=== PATIENT | male | born 1945 | race Caucasian/White ===

== ENCOUNTER 2016-06-24 08:18 | Emergency (ER) | payer MEDICARE, OTHER ==
[~2016-06-24] VITALS: Ht 177.8 cm; Wt 87.9 kg
[~2016-06-24 08:18] MED LIST: ASPI-557 PO; ATOR80TA PO; CLOP75TA PO; FURO-154 PO; IBUP-1724 PO; METO25TA6 PO; NITR0.4T SL; POTA10CA37 PO; TAMS-1 PO
[2016-06-24 08:20] VITALS: Ht 177.8 cm; Wt 87.9 kg
--- OUTSIDE RECORDS SUMMARY | 2016-06-24 08:21 | XMS REPORT | Referral Summary ---
Author Author [facility] Organization [facility] Address Unknown Phone Unavailable Care Team Providers Care Email Marketing Specialist Name Role Phone German Calderon Primary Care Physician [phone] Encounter Date(s): 11/12/15 - 11/12/15 [facility], [address] [place] [address] Discharge Diagnosis: Status post CVA Discharge Diagnosis: General medical exam Discharge Disposition: 01-Home or Self Care Attending Physician: German Calderon DO Admitting Physician: German Calderon DO Vital Signs Most recent to 1 oldest [Reference Range]: Temperature Tympanic 36.5 degC [36.6-38.1 degC] *LOW* (11/12/15 12:52 PM) Peripheral Pulse 65 bpm Rate [60-100 bpm] (11/12/15 12:52 PM) Blood Pressure 122/57 mmHg [90-140/60-90 mmHg] (11/12/15 12:52 PM) Problem List Condition Effective Dates Status Health Status Informant Acute Active pain(Confirmed) Obesity(Confirmed) Active patient Tissue perfusion Active alteration(Confirmed )1 1Problem added automatically by system based on initiation of Tissue Perfusion Cerebral Plan of Care Allergies, Adverse Reactions, Alerts No Known Allergies Medications enalapril 20 mg oral tablet 20 mg 1 tabs, Oral, Daily, 0 Refill(s) Start Date: 11/07/15 Status: Ordered fenofibrate 145 mg oral tablet 145 mg 1 tabs, Oral, Daily, 0 Refill(s) Start Date: 11/07/15 Status: Ordered hydrochlorothiazide 12.5 mg oral tablet 12.5 mg 1 tabs, Oral, Daily, 0 Refill(s) Start Date: 11/07/15 Status: Ordered Lipitor 80 mg oral tablet 80 mg 1 tabs, Oral, Daily, 0 Refill(s) Start Date: 11/08/15 Status: Ordered Plavix 75 mg oral tablet 75 mg 1 tabs, Oral, Daily, 0 Refill(s) Start Date: 11/08/15 Status: Ordered Results No data available for this section Immunizations No data available for this section Procedures Procedure Date Related Diagnosis Body Site Stent Social History Social History Type Response Smoking Status Former smoker Assessment and Plan Extracted from: Title: Office Visit Note Author: German Calderon DO Date: 11/12/15 Assessment/Plan 1.Status post CVA 1. His motor function appears to be normal. 2. He appears to have some deficit with lag with his recall 3. I recommended outpatient no rehabilitation, patient declined 4. Continue with blood pressure and lipid management. 5. Follow-up in a month for reevaluation. Ordered: Office Visit Level 3 New 82249 2.General medical exam 1. We will follow this patient closely, he has moderate risk for recurrent cardiovascular disease/event 2. We'll continue checking his fasting lipids every 6 months Ordered: Office Visit Level 3 New 76972
--- OUTSIDE RECORDS SUMMARY | 2016-06-24 08:21 | XMS REPORT | Referral Summary ---
Author Author [facility] Organization [facility] Address Unknown Phone Unavailable Care Team Providers Care Radio Announcer Name Role Phone German Calderon Primary Care Physician [phone] Encounter Date(s): 11/18/15 - 11/18/15 [facility], [address] [place] [email or web address] Discharge Diagnosis: Sinus bradycardia Discharge Diagnosis: Hypotension Discharge Diagnosis: Status post CVA Discharge Diagnosis: First degree AV block Discharge Disposition: 01-Home or Self Care Attending Physician: German Calderon DO Admitting Physician: German Calderon DO Vital Signs Most recent to 1 oldest [Reference Range]: Temperature Tympanic 36.3 degC [36.6-38.1 degC] *LOW* (11/18/15 8:19 AM) Peripheral Pulse 73 bpm Rate [60-100 bpm] (11/18/15 8:19 AM) Blood Pressure 118/56 mmHg [90-140/60-90 mmHg] (11/18/15 8:19 AM) Problem List Condition Effective Dates Status Health [...] Extracted from: Title: Office Visit Note Author: Gemran Calderon DO Date: 11/18/15 Assessment/Plan 1.First degree AV block 1. EKG demonstrated first-degree AV block with sinus bradycardia and right bundle branch block. 2. Recommended following up with shift superintendent caustic cresylate for further evaluation and management from a cardiac standpoint 3. Low salt diet recommended 4. Avoid dehydration Ordered: Office Visit Level 5 Est 40349 2.Sinus bradycardia 1. Recommendations as above Ordered: Office Visit Level 5 Est 00241 Hypotension 1. Discontinue hydrochlorothiazide 2. Follow-up in a month for reevaluation, sooner if worsening presentation. Ordered: Office Visit Level 5 Est 29761 Status post CVA 1. Over an hour was spent [id number] with this patient and his today explaining his neurological findings and recent neurological insult. All questions were answered. 2. Nurse navigator was consulted to set him up for neuro rehabilitation. 3. Referral was made for neuro rehabilitation. 4. Follow-up in a month for reevaluation. 5. Accounts Supervisor consult recommended for his right hemianopsia. Ordered: Office Visit Level 5 Est 78649 Extracted from: Title: Order for Outpatient Rehab Author: Maggie Stafford RN Date: 11/17 Date: 11/18/15 Order: Outpatient neuro rehab to evaluate and treat Dx: Recent CVA Z78.9 NOTE: For more information please contact Kathleen Busby at [phone]. Ordering Provider: (Dr. German Calderon) [phone]. Thank you. [facility]. German Calderon [address] [place] [phone] Fx:
--- OUTSIDE RECORDS SUMMARY | 2016-06-24 08:22 | XMS REPORT | Referral Summary ---
Author Author [facility] Organization [facility] Address Unknown Phone Unavailable Care Team Providers Care Tombstone Erector Helper Name Role Phone German Calderon Primary Care Physician [phone] Encounter Date(s): 01/06/16 - 01/06/16 [facility], [address] [place] [address]- Discharge Diagnosis: Postural dizziness with near syncope Discharge Diagnosis: Symptomatic hypotension Discharge Diagnosis: CAD (coronary artery disease) Discharge Diagnosis: History of open heart surgery Discharge Diagnosis: HTN (hypertension) Discharge Diagnosis: History of ischemic cerebrovascular accident (CVA) with residual deficit Discharge Disposition: -Home or Self Care Attending Physician: German Calderon DO Admitting Physician: German Calderon DO Vital Signs Most recent to 1 oldest [Reference Range]: Temperature Tympanic 36.3 degC [36.6-38.1 degC] *LOW* (01/06/16 9:33 AM) Peripheral Pulse 59 bpm Rate [60-100 bpm] *LOW* (01/06/16 9:33 AM) Respiratory Rate 14 br/min [14-20 br/min] (01/06/16 9:33 AM) Blood Pressure 108/50 mmHg [90-140/60-90 mmHg] (01/06/16 9:33 AM) SpO2 98 % (01/06/16 9:33 AM) Problem List Condition Effective Dates Status Health Status Informant Acute Active pain(Confirmed) Obesity(Confirmed) Active patient Tissue perfusion Active alteration(Confirmed )1 1Problem added automatically by system based on initiation of Tissue Perfusion Cerebral Plan of Care Allergies, Adverse Reactions, Alerts No Known Allergies Medications amiodarone 200 mg oral tablet mg tabs, Oral, Daily, 0 Refill(s) Start Date: 01/06/16 Status: Ordered aspirin 81 mg oral tablet mg tabs, Oral, Daily, 0 Refill(s) Start Date: 01/06/16 Status: Ordered docusate 0 Refill(s) Start Date: 01/06/16 Status: Ordered enalapril 20 mg oral tablet 20 mg 1 tabs, Oral, Daily, 0 Refill(s) Start Date: 11/07/15 Status: Ordered fenofibrate 145 mg oral tablet 145 mg 1 tabs, Oral, Daily, 0 Refill(s) Start Date: 11/07/15 Status: Ordered furosemide 20 mg oral tablet mg tabs, Oral, Daily, 0 Refill(s) Start Date: 01/06/16 Status: Ordered Lipitor 80 mg oral tablet 80 mg 1 tabs, Oral, Daily, 0 Refill(s) Start Date: 11/08/15 Status: Ordered metoprolol tartrate 25 mg oral tablet mg tabs, Oral, BID, 0 Refill(s) Start Date: 01/06/16 Status: Ordered Plavix 75 mg oral tablet 75 mg 1 tabs, Oral, Daily, 0 Refill(s) Start Date: 11/08/15 Status: Ordered rivaroxaban 20 mg oral tablet 20 mg 1 tabs, Oral, qPM, # 30 tabs, 0 Refill(s) Start Date: 01/06/16 Status: Ordered senna 8.6 mg oral tablet mg tabs, Oral, Bedtime (once a day), 0 Refill(s) Start Date: 01/06/16 Status: Ordered tamsulosin 0.4 mg oral capsule mg caps, Oral, Daily, 0 Refill(s) Start Date: 01/06/16 Status: Ordered Results No data available for this section Immunizations No data available for this section Procedures Procedure Date Related Diagnosis Body Site Stent Social History Social History Type Response Smoking Status Former smoker Assessment and Plan Extracted from: Title: Office Visit Note Author: German Calderon DO Date: 01/06/16 Assessment/Plan 1.Postural dizziness with near syncope 1. His syncopal episode appears to be orthostatic hypotension. 2. IV was started and IV NS fluid started juany rate of 500 mL/ hour. 3. Hold off on Lasix. Ordered: Office Visit Level 5 Est 30827 2.Symptomatic hypotension 1. As above. 2. Swamper was consulted by phone, [facility]. Ordered: Office Visit Level 5 Est 16689 3.CAD (coronary artery disease) 1. Continue with recommendations as per cardiothoracic and marine equipment test engineer. 2. Continue with atorvastatin as previous. 3. Continue with cardiac rehabilitation. 4. Consider implementing healthy lifestyle changes. Ordered: Office Visit Level 5 Est 90096 4.History of open heart surgery as above. Ordered: Office Visit Level 5 Est 59944 5.HTN (hypertension) 1. He is having more symptomatic hypotension at this time. Ordered: Office Visit Level 5 Est 29413 6.History of ischemic cerebrovascular accident (CVA) with residual deficit 1. Continue with neuro rehabilitation as previous. 2. Additional recommendations as above. Over an hour was spent with this patient and his today
--- OUTSIDE RECORDS SUMMARY | 2016-06-24 08:22 | XMS REPORT | Continuity of Care Document ---
Author Author [facility] Organization [facility] Address Unknown Phone Unavailable Allergies Active Description Code Type Severity Reaction Onset Reported/Identified Relationship to Patient Clinical Status Yes No Known Allergies [id number] Unknown N/A 12/10/2015 Medications Medication Packaging Start Date Stop Date Route Dosage Sig MORPHINE 12/20/2015 12/23/2015 [id number] ONDANSETRON HCL 12/20/2015 12/24/2015 Q6HPRN DEXTROSE 50% IN WATER (D50W) 12/20/2015 12/24/2015 PRN ALUM-MAG HYDROXIDE-SIMETH 12/20/2015 12/24/2015 Q4HPRN INSULIN (REGULAR) 12/20/2015 12/24/2015 PRN IPRATROPIUM-ALBUTEROL 12/20/2015 12/24/2015 QIDRT DOCUSATE SODIUM 12/20/2015 12/24/2015 BID ASPIRIN 12/20/2015 12/24/2015 0700 ATORVASTATIN 12/20/2015 12/24/2015 HS MAGNESIUM HYDROXIDE 12/21/2015 12/24/2015 PRN POLYETHYLENE GLYCOL 3350 12/21/2015 12/24/2015 QD AMIODARONE 12/21/2015 12/24/2015 Q12H SENNOSIDES 12/21/2015 12/24/2015 QD HEPARIN, PORCINE (PF) 12/21/2015 12/24/2015 Q12H PANTOPRAZOLE 12/21/2015 12/24/2015 ACB ACETAMINOPHEN 12/21/2015 12/22/2015 Q6H HYDROCODONE-ACET 5-325MG 12/21/2015 12/23/2015 Q4H INSULIN LEVEMIR 12/21/2015 12/22/2015 PM INSULIN NOVOLOG 12/22/2015 12/22/2015 TIDWM ALPRAZolam 12/22/2015 12/24/2015 BIDPRN TAMSULOSIN 12/22/2015 12/24/2015 QD METOPROLOL TARTRATE 12/22/2015 12/22/2015 BID METOPROLOL TARTRATE 12/22/2015 12/24/2015 QID BISACODYL 12/23/2015 12/24/2015 PRN BISACODYL 12/23/2015 12/23/2015 ONCE POTASSIUM CHLORIDE 12/23/2015 12/23/2015 ONCE FUROSEMIDE 12/23/2015 12/23/2015 Q12H ACETAMINOPHEN 12/23/2015 12/24/2015 Q6HPRN FUROSEMIDE 12/23/2015 12/24/2015 BID4PM LORATADINE 12/23/2015 12/24/2015 QDPRN PNEUMOCOCCAL 23-VALPS VACCINE 12/24/2015 12/24/2015 DIS INFLUENZA VACCINE TS (PF) 12/24/2015 12/24/2015 DIS RIVAROXABAN 12/24/2015 12/24/2015 SUP Problems Date Dx Coded Attending Type Code Diagnosis Diagnosed By 02/08/2016 [facility] E66.9 OBESITY, UNSPECIFIED [facility] 02/08/2016 [facility] E78.5 HYPERLIPIDEMIA, UNSPECIFIED [facility] 02/08/2016 [facility] I10 ESSENTIAL (PRIMARY) HYPERTENSION [facility] 02/08/2016 [facility] I25.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 [facility] 02/08/2016 [facility] 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 [facility] 02/08/2016 [facility] I65.23 OCCLUSION AND STENOSIS OF BILATERAL CAROTID ARTERIES [facility] 02/08/2016 [facility] M54.9 DORSALGIA, UNSPECIFIED [facility] 02/08/2016 [facility] S Z68.29 BODY MASS INDEX (BMI) 29.0-29.9, ADULT [facility] 02/10/2016 [facility] P J90 PLEURAL EFFUSION, NOT ELSEWHERE CLASSIFIED [facility] 02/10/2016 [facility] S Z95.1 PRESENCE OF AORTOCORONARY BYPASS GRAFT [facility] 02/12/2016 [facility] P J90 PLEURAL EFFUSION, NOT ELSEWHERE CLASSIFIED [facility] 02/12/2016 [facility] S J98.11 ATELECTASIS [facility] 02/12/2016 [facility] S J90 PLEURAL EFFUSION, NOT ELSEWHERE CLASSIFIED [facility] 02/12/2016 [facility] S J98.11 ATELECTASIS [facility] 02/12/2016 [facility] P Z09 ENCOUNTER FOR FOLLOW-UP EXAMINATION AFTER COMPLETED TREATMENT FOR CONDITIONS OTHER THAN MALIGNANT NEOPLASM [facility] 02/19/2016 [facility] S I25.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 [facility] 02/19/2016 [facility] S I25.84 CORONARY 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0 X10(3) 4.5-11.0 RBC - RED CELL COUNT 3.54 X10(6) 4.60-6.20 PLATELET COUNT 190 X10(3) 150-450 HEMOGLOBIN 10.7 g/dl 13.5-18.0 HEMATOCRIT 31.4 % 40.0-54.0 MCV 88.7 fL 80.0-96.0 MCH 30 pg 27-31 MCHC 34.1 % 32.0-36.0 MAGNESIUM - 12/23/15 05:55 MAGNESIUM 2.6 mg/dl 1.8-2.4 BMP - BASIC METABOLIC PANEL - 12/23/15 05:55 GLUCOSE 90 mg/dl 74-106 BUN 34 mg/dl 7-18 CREATININE 1.04 mg/dl 0.70-1.30 eGFR >60 mL/min SODIUM (NA) 141 mEq/L 136-146 POTASSIUM, BLOOD 3.8 mEq/L 3.5-5.1 CHLORIDE 106 mEq/L 98-107 CO2 (BICARBONATE) 29 mEq/L 21-32 CALCIUM 8.9 mg/dl 8.5-10.1 GLUCOSE, ACCUCHEK - 12/23/15 13:45 GLUCOSE (ACCUCHEK) 117 mg/dl 74-105 GLUCOSE, ACCUCHEK - 12/23/15 20:56 GLUCOSE (ACCUCHEK) 129 mg/dl 74-105 CBC NO DIFF (HEMOGRAM) - 12/24/15 03:45 WBC - WHITE CELL COUNT 8.7 X10(3) 4.5-11.0 RBC - RED CELL COUNT 3.55 X10(6) 4.60-6.20 PLATELET COUNT 229 X10(3) 150-450 HEMOGLOBIN 10.7 g/dl 13.5-18.0 HEMATOCRIT 31.7 % 40.0-54.0 MCV 89.3 fL 80.0-96.0 MCH 30 pg 27-31 MCHC 33.8 % 32.0-36.0 BMP - BASIC METABOLIC PANEL - 12/24/15 03:45 GLUCOSE 110 mg/dl 74-106 BUN 30 mg/dl 7-18 CREATININE 0.91 mg/dl 0.70-1.30 eGFR >60 mL/min SODIUM (NA) 144 mEq/L 136-146 POTASSIUM, BLOOD 3.9 mEq/L 3.5-5.1 CHLORIDE 108 mEq/L 98-107 CO2 (BICARBONATE) 28 mEq/L 21-32 CALCIUM 9.1 mg/dl 8.5-10.1 Encounters ACCT No. Visit Date/Time Discharge Status Pt. Type Provider Facility Loc./Unit Complaint [id number] 02/17/2016 13:52:00 02/17/2016 13: 52:00 DIS Outpatient [facility] RA LEFT LUNG PLEURAL EFFUSION [id number] 02/09/2016 12:40:00 02/09/2016 12: 40:00 DIS Outpatient [facility] RA fluid on lungs [id number] 01/19/2016 08:47:00 01/19/2016 08: 47:00 DIS Outpatient [facility] RA PLEURAL EFFUSION [id number] 01/06/2016 12:14:00 01/10/2016 13: 50:00 DIS Inpatient [facility] 110 POST BYPASS, NAUSEA, VOMITING, NEAR SYNCOPAL EPISODE, HYPERTENSION [id number] 12/19/2015 14:45:00 12/24/2015 18: 10:00 DIS Inpatient [facility] 110 CAD [id number] 12/13/2015 08:23:00 12/13/2015 15: 20:00 DIS Outpatient [facility] 110 ABN THALL [id number] 02/03/2016 16:28:00 DIS Outpatient [facility] RA S/P LT THORACENTISIS W/US GUIDANCE
--- OUTSIDE RECORDS SUMMARY | 2016-06-24 08:22 | XMS REPORT | Referral Summary ---
Author Author [facility] Organization [facility] Address Unknown Phone Unavailable Encounter [facility] [id number] Date(s): 11/07/15 - 11/08/15 [facility] [address] [place] [address] Discharge Disposition: 01-Home or Self Care Attending Physician: Tanisha Cooper DO Admitting Physician: Tanisha Cooper DO Vital Signs Most recent to 1 oldest [Reference Range]: Temperature Oral 36.8 degC [35.8-37.3 degC] (11/08/15 11:50 AM) Peripheral Pulse 63 bpm Rate [60-100 bpm] (11/08/15 11:50 AM) Heart Rate Monitored 65 bpm [60-100 bpm] (11/07/15 10:00 PM) Respiratory Rate 18 br/min [14-20 br/min] (11/08/15 11:50 AM) Blood Pressure 170/74 mmHg [90-140/60-90 mmHg] *HI* (11/08/15 11:50 AM) Mean Arterial 120 mmHg Pressure, Cuff (11/08/15 12:00 AM) SpO2 96 % (11/08/15 11:50 AM) Remote Telemetry Ongoing (11/08/15 8:00 AM) Problem List Condition Effective Dates Status [...] Refill(s) Start Date: 11/08/15 Status: Ordered Results Hematology Most recent to 1 oldest [Reference Range]: WBC [4.8-10.8 7.5 10*3/uL 10*3/uL] (11/08/15 8:05 AM) RBC [4.60-6.20] 5.05 (11/08/15 8:05 AM) Hgb [14.0-18.0 15.4 gm/dL gm/dL] (11/08/15 8:05 AM) Hct [42.0-52.0 %] 44.8 % (11/08/15 8:05 AM) MCV [82.0-99.0 fL] 88.7 fL (11/08/15 8:05 AM) MCH [27.0-32.0 pg] 30.5 pg (11/08/15 8:05 AM) MCHC [32.0-36.0 34.4 gm/dL gm/dL] (11/08/15 8:05 AM) RDW [11.5-14.5 %] 13.4 % (11/08/15 8:05 AM) Platelet [150-400 231 10*3/uL 10*3/uL] (11/08/15 8:05 AM) MPV [9.4-12.3 fL] 9.5 fL (11/08/15 8:05 AM) Chemistry Most recent to 1 oldest [Reference Range]: Sodium Lvl [136-144 140 mEq/L mEq/L] (11/08/15 8:05 AM) Potassium Lvl 3.7 mEq/L [3.6-5.1 mEq/L] (11/08/15 8:05 AM) Chloride [99-109 104 mEq/L mEq/L] (11/08/15 8:05 AM) CO2 [22-32 mEq/L] 26 mEq/L (11/08/15 8:05 AM) AGAP [3-20] 10 (11/08/15 8:05 AM) BUN [4-20 mg/dL] 15 mg/dL (11/08/15 8:05 AM) Glucose Lvl [70-100 107 mg/dL mg/dL] *HI* (11/08/15 8:05 AM) Creatinine Lvl 0.84 mg/dL [0.64-1.27 mg/dL] (11/08/15 8:05 AM) eGFR [>60] >60 1 (11/08/15 8:05 AM) Calcium Lvl 9.1 mg/dL [8.6-10.0 mg/dL] (11/08/15 8:05 AM) Albumin Lvl [3.5-4.8 3.9 gm/dL gm/dL] (11/08/15 8:05 AM) Total Protein 7.1 gm/dL [6.1-7.9 gm/dL] (11/08/15 8:05 AM) Globulin [1.9-4.3 3.2 gm/dL gm/dL] (11/08/15 8:05 AM) ALT [17-63 U/L] 19 U/L (11/08/15 8:05 AM) AST [15-41 U/L] 16 U/L (11/08/15 8:05 AM) Alk Phos [26-104 47 U/L U/L] (11/08/15 8:05 AM) Bili Total [0.2-1.2 1.1 mg/dL 2 mg/dL] (11/08/15 8:05 AM) Chol [0-200 mg/dL] 265 mg/dL *HI* (11/08/15 8:05 AM) Trig [0-150 mg/dL] 142 mg/dL (11/08/15 8:05 AM) HDL [>40 mg/dL] 54 mg/dL (11/08/15 8:05 AM) LDL [0-100 mg/dL] 183 mg/dL *HI* (11/08/15 8:05 AM) VLDL Cholesterol 28 mg/dL [0-30 mg/dL] (11/08/15 8:05 AM) Cardiac Risk 4.9 [0.0-5.7] (11/08/15 8:05 AM) TSH with Reflex Free 2.10 T4 [0.35-5.50] (11/08/15 8:05 AM) 1Result Comment: Multiply eGFR results by 1.21 for race. 2Result Comment: Naproxen, specifically the metabolite O-desmethylnaproxen, may cause spurious elevation in Total Bilirubin levels. Immunizations No data available for this section Procedures Procedure Date Related Diagnosis Body Site Stent Social History Social History Type Response Smoking Status Former smoker Assessment and Plan No data available for this section
--- OUTSIDE RECORDS SUMMARY | 2016-06-24 08:22 | XMS REPORT | Continuity of Care Document ---
Author Author [facility] Organization [facility] Address Unknown Phone Unavailable Support Name Relationship Address Phone [facility] Caregiver [address] [place] [address] Unavailable JULYJOY DO Caregiver [address] [address] Unavailable PREM GATES Next Of Kin [address] [place] [address] Insurance Providers Guarantor Karishma Gates Address [address] [place] [address] * Email DENIED TO PT PORTAL Payer Medicare Policy Number [id number] Subscriber's Name Karishma Gates Relationship 18 Self Payer [employer] Medicare Sup Policy Number [id number] Subscriber's Name Karishma Gates Relationship 18 Self Advance Directives Directive Response Recorded Date/Time Advanced Directives Type None 11/07/15 6:05pm Chief Complaint and Reason for Visit Chief Complaint Neuro Symptoms/Deficits Reason for Visit Acute cerebrovascular accident (CVA) Problems Active Problems Medical Problem Onset Date Status Acute thoracic back pain Unknown Acute Past Problems Medical Problem Onset Date Acute cerebrovascular accident (CVA) Unknown Medications Current Home Medications Medication Dose Units Route Directions Days Qty Instructions Start Date Aspirin (Aspir 81) 81 Mg Tablet.dr 81 Mg Oral Daily 12/29/14 Aspirin 325 Mg Tablet 325 Mg Oral As Needed 11/07/15 Enalapril Maleate 20 Mg Tablet 20 Mg Oral Daily 12/29/14 Fenofibrate Nanocrystallized (Fenofibrate) 145 Mg Tablet 145 Mg Oral Daily 12/29/14 Hydrochlorothiazide 12.5 Mg Capsule 12.5 Mg Oral Give With Breakfast 12/29/14 Social History Social History Problem Response Recorded Date/Time Onset Date Status Tobacco Usage none 12/29/2014 9:56am Not Applicable Not Applicable Query Response Start Date Stop Date Smoking Status Former smoker Hospital Discharge Instructions No hospital discharge instructions. Plan of Care Discharge Date 11/07/15 8:40pm Disposition 02 TO [facility] Condition at Discharge Stable Prescriptions See Medication Section Functional Status No functional status results. Allergies, Adverse Reactions, Alerts No known allergies. Immunizations Query Response on File Recorded Date/Time Influenza Vaccine Hx NONE 11/07/15 7:32pm Vital Signs Acute Vital Signs Vital Response Date/Time Temperature (Fahrenheit) 98.1 deg F (96.8 - 99.1) 11/07/2015 8:40pm Temperature (Calculated Celsius) 36.27790 degrees C (36.0 - 37.3) 11/07/2015 8:40pm Pulse Rate (adult) 78 bpm (60 - 100) 11/07/2015 8:40pm Respiratory Rate 16 breaths/min (10 - 20) 11/07/2015 8:40pm O2 Sat by Pulse Oximetry 95 % (90 - 100) 11/07/2015 8:40pm Blood Pressure 137/76 mm Hg 11/07/2015 8:40pm Height (Feet) 5 feet 11/07/2015 6:05pm Height (Inches) 11.00 inches 11/07/2015 6:05pm Weight (Kilograms) 102.100 kg 11/07/2015 6:05pm Body Mass Index (BMI) 31.0 11/07/2015 6:05pm Results Laboratory Results Test Name Result Units Flags Reference Collection Date/Time Result Date/ Time Comments White Blood Count 7.2 T/MM3 4.5-11.0 11/07/2015 7:18pm 11/07/2015 7: 27pm Red Blood Count 4.92 M/MM3 4.50-5.90 11/07/2015 7:18pm 11/07/2015 7: 27pm Hemoglobin 14.9 GM/DL 13.5-17.5 11/07/2015 7:18pm 11/07/2015 7:27pm Hematocrit 43.6 % 41-53 11/07/2015 7:18pm 11/07/2015 7:27pm Mean Corpuscular Volume 88.6 UM3 80-100 11/07/2015 7:18pm 11/07/2015 7: 27pm Mean Corpuscular Hemoglobin 30.3 UUG 26-34 11/07/2015 7:18pm 2015 7:27pm Mean Corpuscular Hemoglobin Concent 34.2 GM/DL 31-37 11/07/2015 7:1811/07/2015 7:27pm RDW Standard Deviation 42.1 FL 36.9-50.2 11/07/2015 7:18pm 11/07/2015 7 :27pm Platelet Count 245 T/MM3 130-400 11/07/2015 7:18pm 11/07/2015 7:27pm Mean Platelet Volume 9.6 UM3 9.4-12.4 11/07/2015 7:18pm 11/07/2015 7: 27pm Neutrophils (%) (Auto) 56.5 % 33-66 11/07/2015 7:18pm 11/07/2015 7: 27pm Lymphocytes (%) (Auto) 30.5 % 23-45 11/07/2015 7:1811/07/2015 7: 27pm Monocytes (%) (Auto) 8.5 % 0-9.0 11/07/2015 7:pm 11/07/2015 7:27pm Eosinophils (%) (Auto) 3.5 % 0-4 11/07/2015 7:11/07/2015 7:27pm Basophils (%) (Auto) 0.7 % 0-2 11/07/2015 7:18pm 11/07/2015 7:27pm Immature Granulocyte % (Auto) 0.3 % 0.0-0.5 11/07/2015 7:2015 7:27pm Absolute Neutrophils (auto) 4.0 T/MM3 1.8-7.7 11/07/2015 7:2015 7:27pm Absolute Lymphocytes (auto) 2.2 T/MM3 1-4.8 11/07/2015 7:2015 7:27pm Absolute Monocytes (auto) 0.6 T/MM3 0-0.8 11/07/2015 7:18pm 11/07/2015 7:27pm Absolute Eosinophils (auto) 0.3 T/MM3 0-0.5 11/07/2015 7:182015 7:27pm Absolute Basophils (auto) 0.1 T/MM3 0-0.2 11/07/2015 7:18pm 11/07/2015 7:27pm Absolute Immature Granulocyte (auto 0.02 T/MM3 0.00-0.03 11/07/2015 7: 1811/07/2015 7:27pm Prothromb Time International Ratio 1.03 0.99-1.21 11/07/2015 7:18pm 11/07/2015 7:31pm THERAPUTIC RANGE=2.00-3.00 FOR ANTI-THROMBOSIS THERAPUTIC RANGE=2.50-3.50 FOR IMPLANTED VALVE Activated Partial Thromboplast Time 40.5 SEC H 24-36 11/07/2015 7:18pm 11/07/2015 7:31pm Icterus Index < 2 0-7 11/07/2015 7:18pm 11/07/2015 7:33pm Chemistry Specimen Hemolysis < 15 0-25 11/07/2015 7:18pm 11/07/2015 7 :33pm 0-25: Specimen Exhibited No Hemolysis. Turbidity < 20 0-20 11/07/2015 7:18pm 11/07/2015 7:33pm Sodium Level 147 MEQ/L H 134-144 11/07/2015 7:18pm 11/07/2015 7:33pm Potassium Level 3.6 MEQ/L 3.6-5 11/07/2015 7:18pm 11/07/2015 7:33pm Chloride Level 106 MEQ/L 98-107 11/07/2015 7:18pm 11/07/2015 7:33pm Carbon Dioxide Level 24 MEQ/L 22-30 11/07/2015 7:18pm 11/07/2015 7: 33pm Anion Gap 17 MEQ/L H 5-15 11/07/2015 7:18pm 11/07/2015 7:33pm Blood Urea Nitrogen 17.0 MG/DL 9-20 11/07/2015 7:1811/07/2015 7: 33pm Creatinine 0.8 MG/DL 0.8-1.5 11/07/2015 7:18pm 11/07/2015 7:33pm BUN/Creatinine Ratio 21 RATIO 6-26 11/07/2015 7:18pm 11/07/2015 7:33pm Glomerular Filtration Rate Calc 96 11/07/2015 7:18pm 11/07/2015 7: 33pm Glucose Level 105 MG/DL 75-110 11/07/2015 7:18pm 11/07/2015 7:33pm Calculated Osmolality 284 MOSM/KG H 261-280 11/07/2015 7:182015 7:33pm Calcium Level 9.7 MG/DL 8.4-10.2 11/07/2015 7:18pm 11/07/2015 7:33pm Troponin I < 0.012 ng/ml 0-0.12 11/07/2015 7:18pm 11/07/2015 7:44pm Troponin values with a difference of 55% increase from orginal troponin value represent a true biological DELTA value. (%increase Calc=Orginal Troponin value, divided by subsequent Troponin value, multiplied by 100) Procedures No known history of procedures. Encounters Encounter Location Arrival/Admit Date Discharge/Depart Date Attending Provider Departed Emergency Room [facility] 11/07/15 5:58pm 11/07/15 8: 40pm JOY WATERS DO Recent Diagnosis
--- NOTE | 2016-06-24 08:40 | NUR ---
PROVIDER DR KAY IN ROOM FOR EXAM
--- NOTE | 2016-06-24 08:50 | ERPDOC ---
Departure Disposition Decision Date: Jun 24, 2016 Disposition Decision Time: 08:47 Disposition: 01 DISCHARGED HOME, SELF-CARE Impression Impression Impression: Primary Impression: Acute hemorrhoid Severity: Mild Condition: Improved Seen By: Physician only Referrals: ALLY BULL DO (Family) 1 Day Patient Instructions: Hemorrhoids (ED) Problems/Meds/Labs Reviewed?: Yes Medications reviewed and manag: Yes Follow up care ordered?: Yes Mental Status: Alert, Oriented Scripts Hydrocortisone/Pramoxine (Proctofoam-Hc Foam) 10 Gm Foam 1 APPLICATOR RECTALLY BID for 5 Days, #10 GM 1 Refill Prov: EDNA KAY DO 06/24/16 HPI - General Medical General Chief Complaint: GI Bleed Stated Complaint: RECTAL BLEEDING Time Seen by Provider: 08:20 Source: patient, family Exam Limitations: no limitations HPI - General Medical Initial Comments 71-year-old male presents to the emergency department with a chief complaint of rectal bleeding. Patient noted onset of symptoms yesterday evening. Patient had a bowel movement which did have a small amount of bright red blood present on the stool. Patient notes that for the past several days he has been straining in order to produce a bowel movement. Patient is also noted a small lump in his anal region which he is able to push back inside the rectum following each bowel movement. Patient takes only an 81 mg aspirin otherwise no anticoagulation. Patient does note a small amount of discomfort rectally with the lump. It is mild. No radiation. He notes that the discomfort improves following the bowel movement. Patient denies any other complaints or associated symptoms. Patient denies any trauma or injury. Occurred At: home Onset: other (Last night. ) Allergies: Coded Allergies: No Known Allergies (Unverified , 11/07/15) Past History Past Medical History Metabolic: hypercholesterolemia, hypertension Cardiac: CAD, [place] Surgical History Cardiac: cardiac cath, cardiac stent Family History Family History: Negative Social History Smoking Status: Never smoker Substance Use Type: does not use Alcohol Intake: none Review of Systems Constitutional Constitutional: DENIES: chills, fever Eyes General: DENIES: erythema, exudate Lids/Accessories: DENIES: erythema, swelling Vision: DENIES: acuity, blurring ENMT Ears: DENIES: drainage, erythema Hearing: DENIES: hearing loss Balance: DENIES: ataxia, falling to one side Sinuses: DENIES: congestion, pain Nose: DENIES: nosebleeds, pain Mouth/Throat: DENIES: painful swallowing, sore throat Teeth: DENIES: pain Jaw: DENIES: pain Cardiovascular Cardiac: DENIES: chest pain, dyspnea on exertion Rhythm/Rate: DENIES: irregular beat, palpitations Vascular: DENIES: pedal edema, unilateral swelling Pulmonary Respiratory: DENIES: cough, dyspnea, pleuritic chest pain, sputum GI Upper Abdomen: DENIES: nausea, pain, vomiting Lower Abdomen: blood in stool, painful BM, DENIES: diarrhea, pain General: DENIES: dysuria, frequency Musculoskeletal General: DENIES: joint pain, tenderness Integumentary Skin: DENIES: itching, rash Neurological General: DENIES: headache, numbness, weakness Psychiatric Psychiatric: DENIES: emotional instability, suicidal ideation/attempt Endocrine Endocrine: DENIES: polydipsia, polyphagia Hematologic/Lymphatic Hematologic/Lymphatic: DENIES: frequent nosebleeds, lymphadenopathy Allergic/Immunological Allergic/Immunoligical: DENIES: allergic reactions, hives Physical Exam General General Nourishment: well nourished, well developed, appears stated age, no acute distress, adult General Body Habitus: well groomed Vitals and Pain First Documented Vital Signs Date Time Temp Pulse Resp B/P Pulse Ox O2 Delivery O2 Flow Rate FiO2 06/24/16 08:20 98.2 67 18 172/85 96 Room Air Weight: Kilograms: 87.900 Height (feet): 5 Height (inches): 10.00 Triage Pain Scale: RN VS reviewed by Provider: Yes Normal Exams: Head: Normocephalic w/o trauma Eyes: Pupils are PERRLA w/ EOMI, No scleral icterus, irritation, or foreign bodies noted ENMT: No facial trauma, nasal exudates, pharyngeal erythema, or exudates are noted Dental: No fractured, loose, or missing teeth noted Neck: Full range of motion, without adenopathy, JVD, bruits or thyromegaly Chest/Resp: Clear all jones, with good airflow, and symmetry bilaterally CV: Regular rate and rhythm, without murmur or gallop, Pulses 2+ all extremities, capillary refill, <2 seconds all ext., no pedal edema noted Abdomen: Bowel sounds positive, soft, non-tender, non-distended, no hepatosplenomegaly, masses or bruits noted Lymphatic: No lymphadenopathy, or lymphedema noted Musculoskeletal: No tenderness, or deformity noted, good range of motion, all extremities Integumentary: No rashes, hives, or bruising noted, hair and nails, without abnormality Neurologic: Patient is alert, and oriented, cranial nerves, motor/sensory/ cerebellar, exams w/o gross deficits, to observation Psychiatric: Patient exhibits, appropriate attention, emotion and affect Abdomen (brief) Comments Rectal Exam - mild to moderate sized reducible external hemorrhoid. Non- thrombosed. Located at 09:00. Faint oozing of bright red blood noted. Differential Diagnoses Considering: Other (GI bleed/rectal bleeding/hemorrhoid/constipation) Progress Progress Progress Patient has a hemorrhoid noted on physical examination which is the cause of the rectal bleeding. Patient is provided with a prescription for Procto-foam HC. Patient is otherwise completely asymptomatic. Patient is discharged home in improved condition. He is to follow up as instructed. Patient is to return to the emergency department if his condition worsens or changes in any manner. Patient and family are in agreement with the current plan of management. Patient is to follow up as instructed. EDNA KAY DO Jun 24, 2016 08:50
[2016-06-24] MEDS ORDERED: HC A10FO5 RECTALLY (08:51)
--- OUTSIDE RECORDS SUMMARY | 2016-06-24 08:53 | XMS REPORT | Continuity of Care Document ---
Author Author [facility] Organization [facility] Address Unknown Phone Unavailable Allergies Active Description Code Type Severity Reaction Onset Reported/Identified Relationship to Patient Clinical Status Yes No Known Allergies [id number] Unknown N/A 12/10/2015 Medications Medication Packaging Start Date Stop Date Route Dosage Sig MORPHINE 12/20/2015 12/23/2015 [id number] ONDANSETRON HCL 12/20/2015 12/24/2015 [id number] DEXTROSE 50% [...] By 02/08/2016 [place] E66.9 OBESITY, UNSPECIFIED [facility] 02/08/2016 [place] E78.5 HYPERLIPIDEMIA, UNSPECIFIED [facility] 02/08/2016 [place] I10 ESSENTIAL (PRIMARY) HYPERTENSION [facility] 02/08/2016 [place] I25.10 ATHEROSCLEROTIC HEART DISEASE OF [place] CORONARY ARTERY WITHOUT ANGINA PECTORIS [facility] 02/08/2016 [place] 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 [facility] 02/08/2016 [place] I65.23 OCCLUSION AND STENOSIS OF BILATERAL CAROTID ARTERIES [facility] 02/08/2016 [facility] [facility] M54.9 DORSALGIA, UNSPECIFIED [facility] 02/08/2016 [place] S Z68.29 BODY MASS INDEX (BMI) 29.0-29.9, ADULT [facility] 02/10/2016 [place] [facility] P J90 PLEURAL EFFUSION, NOT ELSEWHERE CLASSIFIED [facility] 02/10/2016 [place] S Z95.1 PRESENCE OF AORTOCORONARY BYPASS GRAFT [facility] 02/12/2016 [place] P J90 PLEURAL EFFUSION, NOT ELSEWHERE CLASSIFIED [facility] 02/12/2016 [place] [facility] S J98.11 ATELECTASIS [facility] 02/12/2016 AB MAHER S J90 PLEURAL EFFUSION, NOT ELSEWHERE CLASSIFIED [facility] 02/12/2016 AB MA[facility] S J98.11 ATELECTASIS [facility] 02/12/2016 AB MAHER P Z09 ENCOUNTER FOR FOLLOW-UP EXAMINATION AFTER COMPLETED TREATMENT FOR CONDITIONS OTHER THAN MALIGNANT NEOPLASM [facility] 02/19/2016 AB MAHER S I25.10 ATHEROSCLEROTIC HEART DISEASE OF [place] CORONARY ARTERY WITHOUT ANGINA PECTORIS AB MAHER [...] Status Pt. Type Provider Facility Loc./Unit Complaint [id number] 02/17/2016 13:52:00 02/17/2016 13: 52:00 DIS Outpatient AB MAHER [facility] RA LEFT LUNG PLEURAL EFFUSION [id number] 02/09/2016 12:40:00 02/09/2016 12: 40:00 DIS Outpatient [facility] RA fluid on lungs [id number] 01/19/2016 08:47:00 01/19/2016 08: 47:00 DIS Outpatient [facility] RA PLEURAL EFFUSION [id number] 01/06/2016 12:14:00 01/10/2016 13: 50:00 DIS Inpatient [facility] 110 POST BYPASS, NAUSEA, VOMITING, NEAR SYNCOPAL EPISODE, HYPERTENSION [id number] 12/19/2015 14:45:00 12/24/2015 18: 10:00 DIS Inpatient [facility] 110 CAD [id number] 12/13/2015 08:23:00 12/13/2015 15: 20:00 DIS Outpatient [facility] 110 ABN THALL [id number] 02/03/2016 16:28:00 DIS Outpatient AB MAHER [facility] RA S/P LT THORACENTISIS W/US GUIDANCE
[2016-06-24 09:12] VITALS: BP 158/78; PULSE 66; RESP 16; TEMP 98.2; O2SAT 98
--- NOTE | 2016-06-24 09:12 | NUR ---
DISMISSAL DISMISSAL INSTRUCTIONS WITH RX X1. NO FURTHER QUESTIONS AT THIS TIME. PT LEFT DEPARTMENT AMBUALTORY
== END 2016-06-24 09:12 | disposition home or self-care (01) ==
LOC: ED 08:18
DX: K64.4 Residual hemorrhoidal skin tags (principal)